=== PATIENT | female | born 1985 | race Caucasian/White ===

== ENCOUNTER 2016-06-01 19:00 | Emergency (ER) | payer OTHER ==
--- NOTE | 2016-06-01 19:04 | PDOC ---
History of Present Illness - General History Source: Patient Exam Limitations: No Limitations - History of Present Illness Initial Comments: 06/01/16 20:07 The patient is a 30 year old female, with no significant past medical history, who presents to the emergency department with RLQ abdominal pain for the past 4 days. The patient reports feeling nauseous but denies any vomiting. The patient additionally reports dysuria and states that she has noticed that her urine is foul smelling. The patient denies fever, chills, vomiting, diarrhea or melena/ bpr. The patient denies any vaginal discharge. PAST MEDICAL HISTORY: See HPI. PAST SURGICAL HISTORY: No significant history. FAMILY HISTORY: No pertinent history. SOCIAL HISTORY: Patient lives with family and is employed. MEDICATIONS: Reviewed. ALLERGIES: As per nursing notes. Adult ROS: General: No fevers or chills, no weakness, no weight loss. HEENT: No change in vision. No sore throat. No ear pain. CardioVascular: No chest pain or shortness of breath. Respiratory: No cough, or wheezing. Gastrointestinal: +Nausea, abdominal pain. No vomiting, diarrhea or constipation , no rectal bleeding. Genitourinary: +Dysuria, foul smelling urine. No hematuria or frequency. Musculoskeletal: No joint or muscle pain or swelling. Neurologic: No headache, vertigo, dizziness or loss of consciousness. Psychiatric: No depression. Skin: No rashes or easy bruising. Endocrine: No increased thirst or abnormal weight change. Allergic: No skin or latex allergy. All other systems reviewed and normal. Adult Exam: General: Well-nourished well-developed individual, no acute distress. HEENT: Throat: Normal, tonsils normal, no erythema or exudate. Neck: Supple, no meningeal signs, no lymphadenopathy. Eyes::Pupils equal reactive and round, extraocular motion intact. Chest: Nontender to palpation. Cardiac: S1-S2 normal, regular rate and rhythm, no murmurs rubs or gallops. Respiratory: Lungs clear to auscultation bilaterally. Abdomen: Mild RLQ tenderness to palpation. No guarding, no rebound. Soft, nondistended, normal bowel sounds. . Extremities: Warm, dry, no cyanosis, clubbing, or edema. Skin: No rashes. Neuro: Alert and oriented x3, nonfocal exam, grossly intact, normal gait. Psych: Normal mood and affect. Pelvic Exam: Normal. There is no discharge. No cervical motion tenderness. No adnexal tenderness. <Criss Montes - Last Filed: 06/01/16 20:54> - General History Source: Patient Exam Limitations: No Limitations - History of Present Illness Initial Comments: 06/01/16 20:58 A portion of this note was documented by scribe services under my direction. I have reviewed the details of the note, within reason, and agree with the documentation. The case summary and management plan written by me. Assessment and plan: This is a 30-year-old female who comes in complaining of 4 days of progressive intermittent right lower quadrant pain. On exam patient did have some mild pain on palpation of the right lower quadrant. Patient also complaining of frequency and dysuria or symptoms. Patient had gone to an urgent care center and was told the urine was negative so came in here for evaluation. Patient had a workup including lab work which was normal she did not have a white count or left shift. Patient's chemistries were normal. Patient had a pelvic ultrasound that was negative for any acute renal pathology , kidney stones, ovarian pathology or pelvic pathology. Patient's urine did have some bacteria, white. Cells and red cells so she will be treated for a presumptive cystitis. Patient given Macrodantin and Pyridium here in the emergency room Chlamydia and GC cultures were sent. Patient has no OB doctor she can follow-up with. Patient discharged home with her significant other. <Florentin Landon I - Last Filed: 06/01/16 21:00> - General Chief Complaint: Pain, Acute Stated Complaint: RLQ PAIN URINARY SYMPTOMS Time Seen by Provider: 06/01/16 19:03 Past History <Criss Montes - Last Filed: 06/01/16 20:54> <Florentin Landon I - Last Filed: 06/01/16 21:00> - Past Medical History Allergies/Adverse Reactions: Allergies Allergy/AdvReac Type Severity Reaction Status Date / Time aspirin Allergy Verified 06/01/16 19:04 NSAIDS (Non-Steroidal Allergy Verified 06/01/16 19:03 Anti-Inflamma Home Medications: Ambulatory Orders Nitrofurantoin Monohyd/M-Cryst [Macrobid -] 100 mg PO BID #14 capsule 06/01/16 Phenazopyridine HCl [Pyridium] 100 mg PO TID #6 tablet 06/01/16 *Physical Exam - Vital Signs Last Vital Signs Temp Pulse Resp BP Pulse Ox 97.9 F 68 16 125/87 100 06/01/16 19:05 06/01/16 19:05 06/01/16 19:05 06/01/16 19:05 06/01/16 19:05 <Criss Montes - Last Filed: 06/01/16 20:54> ED Treatment Course - LABORATORY CBC & Chemistry Diagram: 06/01/16 19:15 06/01/16 19:15 - ADDITIONAL ORDERS Additional order review: Laboratory Results 06/01/16 06/01/16 06/01/16 19:15 19:15 19:15 Sodium 136 Potassium 3.7 Chloride 104 Carbon Dioxide 25 Anion Gap 7 L BUN 14 Creatinine 0.7 Creat Clearance w eGFR > 60 Random Glucose 90 Calcium 9.0 Total Bilirubin 0.3 AST 15 ALT 14 Alkaline Phosphatase 48 Total Protein 7.2 Albumin 4.4 Urine Color Yellow Urine Appearance Clear Urine pH 6.0 Ur Specific [place] 1.015 Urine Protein Negative Urine Glucose (UA) Negative Urine Ketones Negative Urine Blood 2+ H Urine Nitrite Negative Urine Bilirubin Negative Urine Urobilinogen 0.2 e.u/dl Ur Leukocyte Esterase Negative Urine RBC 5-10 Urine WBC 2-3 Ur Epithelial Cells Few Urine Bacteria Few Urine HCG, Qual Negative 06/01/16 19:15 RBC 5.30 H MCV 79.4 L MCHC 32.8 RDW 12.9 MPV 8.9 Neutrophils % 48.4 Lymphocytes % 44.6 H Monocytes % 5.2 Eosinophils % 1.4 Basophils % 0.4 - Medications Given in the ED: ED Medications Discontinued Medications Generic Name Dose Route Start Last Admin Trade Name Bladimir PRN Reason Stop Dose Admin Acetaminophen 1,000 mg 06/01/16 19:11 06/01/16 19:27 Ofirmev Injection - IVPB 06/01/16 19:12 1,000 mg ONCE ONE Administration <Criss Montes - Last Filed: 06/01/16 20:54> - LABORATORY CBC & Chemistry Diagram: 06/01/16 19:15 06/01/16 19:15 <Florentin Landon I - Last Filed: 06/01/16 21:00> *DC/Admit/Observation/Transfer - Attestations Scribe Attestion: 06/01/16 20:08 Documentation prepared by Criss Montes, acting as medical investigator for Florentin Landon MD. <Criss Montes - Last Filed: 06/01/16 20:54> <Florentin Landon I - Last Filed: 06/01/16 21:00> Diagnosis at time of Disposition: Pelvic pain, Cystitis - Discharge Dispostion Disposition: HOME Condition at time of disposition: Stable - Prescriptions Prescriptions: Nitrofurantoin Monohyd/M-Cryst [Macrobid -] 100 mg PO BID #14 capsule Phenazopyridine HCl [Pyridium] 100 mg PO TID #6 tablet - Patient Instructions Additional Instructions: Take Macrodantin 1 tablet twice a day for 7 days. Stay well-hydrated For the frequency and burning you can take Pyridium 1 tablet 3 times a day for 2 days. A culture was sent if it is positive we will contact you with the results.. Return to the emergency department immediately with ANY new, persistent or worsening symptoms. Continue any medications as previously prescribed by your physician. You should follow up with your primary doctor as soon as possible regarding today's emergency department visit. . Please make sure your doctor reviews the results of your emergency evaluation. Thank you for coming to the Emergency Department today for your care. It was a pleasure to see you today. Please note that your evaluation is INCOMPLETE until you follow-up with your doctor. - Post Discharge Activity Work/School Note: Back to School
[2016-06-01] MEDS ORDERED: SODIUM CHLORIDE 1,000 ML IV ONE (19:10)
[2016-06-01] MEDS ORDERED: ACETAMINOPHEN 1000 MG/100 ML VIAL (NON FORMULARY) IVPB ONE (19:11)
[2016-06-01] MEDS ORDERED: ACETAMINOPHEN INJECTION 100 ML IVPB ONE (19:16)
[2016-06-01 19:22] LABS: URINE APPEARANCE Clear; URINE BILIRUBIN Negative (NEGATIVE); URINE GLUCOSE (UA) Negative (NEGATIVE); URINE KETONE Negative (NEGATIVE); URINE LEUK ESTERASE Negative (NEGATIVE); URINE NITRITE Negative (NEGATIVE); URINE PROTEIN Negative (NEGATIVE); URINE UROBILINOGEN 0.2 E.U/dl (0.2-1.0)
[2016-06-01 19:23] LABS: URINE BLOOD 2+ (NEGATIVE)
[2016-06-01 19:24] LABS: URINE COLOR YELLOW
[2016-06-01 19:26] VITALS: BP 125/87; PULSE 68; TEMP 97.9; BMI 24.7
[2016-06-01 19:32] LABS: BASOPHIL 0.4 % (0-2.0); EOSINOPHIL 1.4 % (0-4.5); MCHC 32.8 g/dl (32.0-36.0); MEAN CELL VOLUME 79.4 fl (80-96); MEAN PLT VOLUME 8.9 fl (7.5-11.1); NEUTROPHILS 48.4 % (42.8-82.8); PLATELET COUNT 255 K/MM3 (134-434); RDW 12.9 % (11.6-15.6); WHITE BLOOD COUNT 6.3 K/mm3 (4.0-10.0)
[2016-06-01 19:34] LABS: URINE BACTERIA FEW /hpf (NEGATIVE)
[2016-06-01 19:43] LABS: ALBUMIN 4.4 g/dl (3.5-5.0); ALK PHOS 48 U/L (32-92); ANION GAP 7 (8-16); BILIRUBIN,TOTAL 0.3 mg/dl (0.2-1.0); CO2 25 mmol/L (22-28); CREATININE 0.7 mg/dl (0.6-1.3); GLUCOSE,RANDOM 90 mg/dl (74-106); SGOT/AST 15 U/L (10-42); SGPT/ALT 14 U/L (10-40); TOT PROT 7.2 g/dl (6.4-8.3)
[2016-06-01] MEDS ORDERED: NITROFURANTOIN MACROCRYSTAL 50 MG CAPSULE (FP) ONE (20:48)
[2016-06-01] MEDS ORDERED: PHENAZOPYRIDINE HCL 100 MG TABLET (FP) PO ONE (20:52)
[2016-06-01] MEDS ORDERED: PHENAZOPYRIDINE HCL 100 MG TABLET (FP) ONE (20:53)
[2016-06-01] MEDS ORDERED: NITROFURANTOIN MACROCRYSTAL 50 MG CAPSULE (FP) PO SCH (21:00)
== END 2016-06-01 20:59 | disposition home or self-care (01) ==
LOC: FER 19:00
PROC: 3E033NZ Introduction of Analgesics, Hypnotics, Sedatives into Peripheral Vein, Percutaneous Approach (ICD-10-PCS; principal; 2016-06-01)
PROC: 3E0337Z Introduction of Electrolytic and Water Balance Substance into Peripheral Vein, Percutaneous Approach (ICD-10-PCS; 2016-06-01)
DX: N30.90 Cystitis, unspecified without hematuria (principal); R10.2 Pelvic and perineal pain
CPT/HCPCS: 36415; 76775-TC; 76856-TC; 80053; 81003; 81015; 84703; 85025; 87086; 87491; 87591; 99281-25

== ENCOUNTER 2020-04-22 11:30 | Emergency (ER) | payer OTHER | END 2020-04-22 14:21 | disposition home or self-care (01) | LOC: JVIRT 11:30 | DX: U07.1 COVID-19 (principal) | CPT/HCPCS: C9803; G2012-GT; U0003 ==